=== PATIENT | female | born 1965 | race Caucasian/White ===

== ENCOUNTER 2021-10-17 02:19 | Emergency (ER) | payer OTHER ==
[~2021-10-17] VITALS: Ht 160 cm; Wt 85.3 kg
[~2021-10-17 02:19] MED LIST: BACL20TA4 PO; MECL-231 PO; PAX20 PO
[2021-10-17 02:30] VITALS: BP 139/76
--- NOTE | 2021-10-17 02:33 | NUR ---
TO LOBBY A/W BED AMBULATORY
--- NOTE | 2021-10-17 04:18 | NUR ---
PT TAKEN TO ER CHAIR A
[2021-10-17] MEDS ORDERED: MORPHINE SULFATE 4 MG/ML SYR IM ONE (04:35)
[2021-10-17] MEDS ORDERED: KETOROLAC 30 MG/ML VIAL IM ONE (04:35)
--- NOTE | 2021-10-17 04:35 | NUR ---
SEEN AND EXAMINED BY ANA MARIA
[2021-10-17] MEDS ORDERED: ACET-8386 PO (04:40)
--- NOTE | 2021-10-17 04:45 | NUR ---
MEDICATED PER [facility] ORDER, TOLERATED WELL.
[2021-10-17 05:15] VITALS: BP 119/81
--- NOTE | 2021-10-17 05:15 | NUR ---
Patient discharged with v/s stable. Written and verbal after care instructions given and explained. Patient alert, oriented and verbalized understanding of instructions. Ambulatory with steady gait. All questions addressed prior to discharge. ID band removed. Patient advised to follow up with PMD. Rx of HYDROCODONE given. Patient educated on indication of medication including possible reaction and side effects. Opportunity to ask questions provided and answered.
== END 2021-10-17 05:15 | disposition home or self-care (01) ==
LOC: MED 02:19
DX: R51.9 Headache, unspecified (principal); G47.00 Insomnia, unspecified; F17.210 Nicotine dependence, cigarettes, uncomplicated; Z98.890 Other specified postprocedural states; Z88.1 Allergy status to other antibiotic agents; Z88.8 Allergy status to other drugs, medicaments and biological substances; Z79.899 Other long term (current) drug therapy
CPT/HCPCS: 96372; 99284; J1885; J2270